=== PATIENT | female | born 1975 | race Caucasian/White ===

== ENCOUNTER 2025-01-10 03:58 | Emergency (ER) | payer BC ==
[~2025-01-10] VITALS: Ht 152.4 cm; Wt 50.8 kg
[2025-01-10] MEDS: KETOROLAC TROMETHAMINE 15 MG INJ IVP ONE (04:15)
[2025-01-10] MEDS ORDERED: KETOROLAC TROMETHAMINE 15 MG INJ ONE (04:28)
[2025-01-10] MEDS ORDERED: ONDANSETRON 4 MG/2 ML VIAL ONE (04:28)
[2025-01-10 04:34] LABS: BASOPHILS % (AUTO) 0.2 % (0.0-2.0); CALCIUM 9.8 mg/dL (8.5-10.1); EOSINOPHILS % (AUTO) 0.2 % (0.0-7.0); HEMATOCRIT 43.6 % (31.2-41.9); HEMOGLOBIN 15.3 g/dL (10.9-14.3); LYMPHOCYTES # (AUTO) 0.8 K/uL (0.8-4.8); LYMPHOCYTES % (AUTO) 8.4 % (20.5-51.5); MEAN CORPUSCULAR HEMOGLOBIN 33.7 uug (24.7-32.8); MEAN CORPUSCULAR HGB CONC 35 g/dL (32.3-35.6); MEAN CORPUSCULAR VOLUME 96.2 fL (75.5-95.3); MONOCYTES # (AUTO) 0.9 K/uL (0.1-1.30); MONOCYTES % (AUTO) 9.2 % (0.0-11.0); NEUTROPHILS # (AUTO) 7.9 K/uL (1.8-8.9); PLATELET COUNT (AUTO) 273 K/uL (179-408); POTASSIUM 3.8 mmol/L (3.5-5.1); RED BLOOD CELL COUNT(AUTO) 4.53 MIL/uL (3.63-4.92); WHITE BLOOD COUNT (AUTO) 9.6 K/uL (3.8-11.8)
[2025-01-10] MEDS: IV NORMAL SALINE 500 ML BAG IV ONE (04:35)
[2025-01-10] MEDS: ONDANSETRON 4 MG/2 ML VIAL IV ONE (04:35)
[2025-01-10 04:36] LABS: DIFFERENTIAL COMMENT 1
[2025-01-10 04:37] LABS: *BILIRUBIN,URIN 1+ (NEGATIVE); *BLOOD, URINE NEGATIVE (NEGATIVE); *CLARITY,URINE CLEAR (CLEAR); *COLOR,URINE YELLOW (YELLOW); *KETONES,URINE 2+ (NEGATIVE); *PROTEIN,URINE 2+ (NEGATIVE); *UROBILINOGEN,URINE 0.2 E.U./dl (NORMAL); LEUKOCYTE ESTERASE ,URINE TRACE (NEGATIVE); NITRITE, URINE NEGATIVE (NEGATIVE); PH,URINE 5.5 (5.0-8.0); UGLUCOSE NEGATIVE (NEGATIVE)
[2025-01-10 04:39] LABS: ALBUMIN 4.5 g/dL (3.4-5.0); BILIRUBIN,TOTAL 0.7 mg/dL (0.2-1.0); TOTAL PROTEIN, SERUM 8.3 g/dL (6.4-8.2)
[2025-01-10 04:43] LABS: *URINE HCG, QUAL NEGATIVE (NEGATIVE)
[2025-01-10 04:44] LABS: BACTERIA,URINE FEW /HPF (NONE SEEN); MUCUS,URINE MODERATE /LPF (0-FEW); RBC,URINE NONE SEEN /HPF (0-3); SQUAMOUS EPITHELIAL CELL,UR MODERATE /HPF (NONE SEEN)
[2025-01-10 04:45] LABS: C-REACTIVE PROTEIN 0.32 mg/dL (0.00-0.30)
[2025-01-10] MEDS ORDERED: NAPR-1069 PO (04:52)
[2025-01-10] MEDS ORDERED: DICY10CA13 PO (04:52)
[2025-01-10] MEDS ORDERED: ONDA4TAB5 PO (04:52)
[2025-01-10] MEDS ORDERED: ACET-2605 PO (04:53)
[2025-01-10 05:18] VITALS: BP 131/78; TEMP 208.4; O2SAT 96
== END 2025-01-10 05:23 | disposition home or self-care (01) ==
LOC: ER 04:04
DX: R11.2 Nausea with vomiting, unspecified (principal); R51.9 Headache, unspecified; Z60.2 Problems related to living alone; Z20.822 Contact with and (suspected) exposure to COVID-19
CPT/HCPCS: 99284; 96374; 96361; 96375; 87426; 87804 ×2; 80053; 81001; 84703; 83735; 85025; 86140; 36415; J1885; J2405; J7040; A4606; A4663